=== PATIENT | male | born 1995 | race Caucasian/White ===

== ENCOUNTER 2021-04-09 20:21 | Emergency (ER) | payer SELFPAY ==
--- NOTE | 2021-04-09 22:32 | EDM.PDOC ---
ED HPI GENERAL MEDICAL PROBLEM - General Chief Complaint: ENT Problem Stated Complaint: TOOTH PAIN Time Seen by Provider: 04/09/21 20:31 Source of Information: Reports: Patient, Family ( at bedside) History Limitations: Reports: No Limitations - History of Present Illness INITIAL COMMENTS - FREE TEXT/NARRATIVE: chief complaint: facial swelling. This is a 25 year old male presents to the ER for evaluation of swollen face. He reports has "bad tooth" for months, for the past 8 hours has notice left side of face is swollen and gum is tender to tough. denies any fever, chills, nausea, vomiting, headache. Onset: Today Duration: Hour(s): (8), Getting Worse Location: Reports: Face Quality: Reports: Ache Severity: Mild Improves with: Reports: None Worsens with: Reports: None Context: Reports: Other (dental -broken tooth for months) Associated Symptoms: Reports: No Other Symptoms Left Upper Jaw Pain Score (Numeric/FACES): 3 - Related Data Allergies Allergy/AdvReac Type Severity Reaction Status Date / Time amoxicillin Allergy Swelling Verified 04/09/21 20:45 Penicillins Allergy Swelling Verified 04/09/21 20:45 Home Meds: Home Meds NK [No Known Home Meds] 04/09/21 [History] Past Medical History Psychiatric History: Reports: Addiction, Anxiety, Depression - Infectious Disease History Infectious Disease History: Reports: Chicken Pox, Novel Coronavirus - Past Surgical History HEENT Surgical History: Reports: Oral Surgery Social & Family History - Tobacco Use Tobacco Use Status *Q: Light Tobacco User Years of Tobacco use: 5 Packs/Tins Daily: 0.1 - Caffeine Use Caffeine Use: Reports: Coffee, Energy Drinks, Soda - Recreational Drug Use Recreational Drug Use: Yes Drug Use in Last 12 Months: Yes Recreational Drug Type: Reports: Marijuana/Hashish Recreational Drug Use Frequency: Weekly - Living Situation & Occupation Living situation: Reports: Occupation: Unemployed (moved to [place] from [place], [place]. here with .) ED ROS ENT - Review of Systems Review Of Systems: See Below Constitutional: Reports: Other (dental infection) HEENT: Reports: Dental Pain, Other (left sided facial swelling for the past 8 hours) Respiratory: Reports: No Symptoms Cardiovascular: Reports: No Symptoms Endocrine: Reports: No Symptoms GI/Abdominal: Reports: No Symptoms Musculoskeletal: Reports: No Symptoms Skin: Reports: No Symptoms Neurological: Reports: No Symptoms Psychiatric: Reports: No Symptoms Hematologic/Lymphatic: Reports: No Symptoms Immunologic: Reports: No Symptoms ED EXAM, ENT - Physical Exam Exam: See Below Exam Limited By: No Limitations General Appearance: Alert, WD/WN, Mild Distress, Other (neat and well groomed, polite) Eye Exam: Bilateral Eye: EOMI, PERRL Ears: Normal External Exam Nose: Normal Inspection Mouth/Throat: Normal Teeth (all teeth except #14 are clean and without decay), Dental Abcess (left upper gum with edema), Dental Pain (tooth #14 is eroded to the gum line, tissue is edematous and tender to palpation), Dental Tenderness (left upper jaw and cheek, tooth #14), Gum Swelling (left upper jaw) Head: Atraumatic, Facial Swelling (left upper cheek), Facial Tenderness (left upper cheek) Neck: Normal Inspection, Supple, Non-Tender, Full Range of Motion Respiratory/Chest: No Respiratory Distress, Lungs Clear, Normal Breath Sounds Cardiovascular: Normal Peripheral Pulses, Regular Rate, Rhythm, No Edema, No Murmur GI/Abdominal: Normal Bowel Sounds, Soft, Non-Tender Skin: Warm, Dry, Intact, Erythema (slight pink color noted to left side of face and edema), Increased Warmth Lymphatic: No Adenopathy Course - Vital Signs Last Recorded V/S: Last Vital Signs Temp 97.6 F 04/09/21 20:50 Pulse 67 04/09/21 20:50 Resp 16 04/09/21 20:50 BP 127/85 04/09/21 20:50 Pulse Ox 97 04/09/21 20:50 - Re-Assessments/Exams Free Text/Narrative Re-Assessment/Exam: discussed plan of care -medication for infection and pain -referral to dental clinic -return to ER if symptoms worsen or has any concerns and Mrs. Cotter agree with plan of care Departure - Departure Time of Disposition: 22:25 Disposition: Home, Self-Care 01 Condition: Good Clinical Impression: Dental abscess - Discharge Information *PRESCRIPTION DRUG MONITORING PROGRAM REVIEWED*: Not Applicable *COPY OF PRESCRIPTION DRUG MONITORING REPORT IN PATIENT ADALBERTO: Not Applicable Instructions: Dental Abscess, [id number] Referrals: PCP,None [Primary Care Provider] - Forms: ED Department Discharge Care Plan Goals: Dental abscess -Cleocin (clindamycin) 150mg take two capsule three times a day for 10 days -Hydrocodone 5-325 mg one every 4 to 6 hours as needed for pain #6 -Over the counter Motrin or Tylenol as directed -Referral to Dental Clinic for exam -return to ER for any increase pain, facial swelling, headache, nausea, vomiting or any concerns. Mr and Mrs. Cotter agree with plan of care Sepsis Event Note (ED) - Evaluation Sepsis Screening Result: No Definite Risk - Focused Exam Vital Signs: Vital Signs Temp Pulse Resp BP Pulse Ox 04/09/21 20:50 97.6 F 67 16 127/85 97 04/09/21 20:43 97.6 F 67 16 127/85 97 - Problem List & Annotations (1) Dental abscess SNOMED Code(s): 118156168 Code(s): K04.7 - PERIAPICAL ABSCESS WITHOUT SINUS Status: Acute Priority: High Current Visit: Yes - Problem List Review Problem List Initiated/Reviewed/Updated: Yes - Assessment/Plan Assessment:: Dental abscess -Cleocin (clindamycin) 150mg take two capsule three times a day for 10 days -Hydrocodone 5-325 mg one every 4 to 6 hours as needed for pain #6 -Over the counter Motrin or Tylenol as directed -Referral to Dental Clinic for exam -return to ER for any increase pain, facial swelling, headache, nausea, vomiting or any concerns. Mr and Mrs. Cotter agree with plan of care
== END 2021-04-09 22:45 | disposition home or self-care (01) ==
LOC: JP.ED 20:21
DX: K04.7 Periapical abscess without sinus (principal); Z88.0 Allergy status to penicillin; Z72.0 Tobacco use
CPT/HCPCS: 99282